=== PATIENT | male | born 1985 | race Caucasian/White ===

== ENCOUNTER 2017-07-12 08:37 | Emergency (ER) | payer BC ==
[2017-07-12 08:42] VITALS: BP 165/85; PULSE 72; RESP 16; TEMP 97.7; O2SAT 97
[2017-07-12] MEDS ORDERED: RABIES VACC, HUMAN DIPLOID/PF 2.5 UNIT VIAL (RABAVERT) IM ONE (09:05)
--- NOTE | 2017-07-12 09:11 | EDPHY ---
General Narrative: CHIEF COMPLAINT: Need rabies post exposure prophylaxis dose #2 HISTORY OF PRESENT ILLNESS: Patient reports with complaints of needing his 2nd Rabavert injection. He reports being in [place] recently. He was bit in his left hand last week, 1 week ago. This was by a macacque. He initially presented to emergency department in [facility]. They alexander his blood to test for masses seen her per virus, administered rabies vaccination and immunoglobulin. They also placed him herpes prophylaxis treatment. He presents here for day 3 injection of Rabavert. He has no headache. No chest pain or shortness of breath. No muscle spasms or trismus. No pain in the right hand and he feels that the wound on the hand is fully healed. He is now today on his tetanus, which was also administered and [place]. He lives here now thus he presents for the day 3 dosing. He has no other associated complaints or modifying factors. REVIEW OF SYSTEMS: Ten systems reviewed and are negative unless otherwise noted in the HPI PCP: None yet SPECIALISTS: None PAST MEDICAL HISTORY: None SOCIAL HISTORY: Nonsmoker. Works at [employer] FAMILY HISTORY: Noncontributory EXAMINATION General Appearance: Alert, no distress Head: normocephalic, atraumatic Eyes: Pupils equal and round, no conjunctival pallor or injection ENT, Mouth: Mucous membranes moist. Airway patent Neck: Normal inspection, supple, non-tender Respiratory: Lungs are clear to auscultation. No wheezing, rhonchi or crackles Cardiovascular: Regular rate and rhythm. No murmur Gastrointestinal: Abdomen is soft and nontender Back: non-tender, no bony abnormalities Neurological: GCS 15. A&O, nonfocal, normal gait strength is symmetric in the upper extremities Skin: Warm and dry, no rash petechiae or purpura. No abnormality of the dorsum of the right hand in the location of the bite Extremities: Nontender, no pedal edema Psychiatric: Mood and affect normal DIFFERENTIAL DIAGNOSES: Including but not limited to rabies post exposure prophylaxis, macacine herpes virus MDM: 9:08 a.m. Post exposure prophylaxis, day 3 treatment Rabavert. Patient has no complaints of any kind. He is adhering to his antiviral regimen as prescribed [place]. I have discussed the case with the on-call infectious disease physician Dr. Hernandez. He has taken the patient's information and will have the [facility] contact him for his day 7 treatment, which she is due for this Wednesday. The patient is comfortable with this plan. He has no complaints of any kind. He is well-appearing and nontoxic. Neuro exam is fully intact and there is no trismus. He is discharged in stable condition with the follow-up information for this and ED precautions. Additionally, he is recently relocated to [place] , thus we will provide the on-call primary care physician information for him to follow-up. SUPERVISION: Patient was independently examined, but I discussed the case with my secondary supervising physician Dr. Sheppard - History Smoking Status: Never smoked - Objective Vital Signs: Initial Vital Signs Temperature (C) 97.7 F 07/12/17 08:38 Heart Rate 72 07/12/17 08:38 Respiratory Rate 16 07/12/17 08:38 Blood Pressure 165/85 H 07/12/17 08:38 O2 Sat (%) 97 07/12/17 08:38 O2 Delivery Mode Room Air Allergies/Adverse Reactions: No Known Allergies Allergy (Unverified 07/12/17 08:42) Home Medications: Medication Instructions Recorded Rabies Vacc, Human Diploid/Pf 2.5 unit IM 07/12/17 [Imovax Rabies Vaccine (*)] valACYclovir [Valtrex (*)] 500 mg PO 07/12/17 Departure - Departure Disposition: Home, Routine, Self-Care Clinical Impression: Need for post exposure prophylaxis for rabies, History of receipt of rabies immune globulin Animal bite of hand Qualifiers: Encounter type: subsequent encounter Laterality: right Qualified Code(s): S61.451D - Open bite of right hand, subsequent encounter Condition: Good Instructions: Rabies Vaccine (By injection), Rabies Immune Globulin (By injection) Additional Instructions: 1. You should be contacted by the [facility] for appointment on Wednesday for evaluation and vaccination 2. ED precautions as discussed Referrals: JEREMY LINDSAY MD [Other] - As per Instructions [facility] (ED,. [Edm Groups for Call Sched] - As per Instructions Gil Dailey MD [Medical Doctor] - As per Instructions
== END 2017-07-12 09:30 | disposition home or self-care (01) ==
DX: Z23 Encounter for immunization (principal); Z20.3 Contact with and (suspected) exposure to rabies

== ENCOUNTER 2017-08-31 08:28 | Emergency (ER) | payer BC ==
[2017-08-31 08:35] VITALS: RESP 16; TEMP 98.1
--- NOTE | 2017-08-31 08:59 | EDPHY ---
H & P Stated Complaint: [place] pop in RLE last pm while climbing;had weakness in hand ( resolving) Time Seen by Provider: 08/31/17 08:58 HPI/ROS: HPI: This is a 32-year-old male who presents with Chief Complaint: [place] pop in RLE last pm while climbing;had weakness in hand ( resolving) Location: Right forearm Quality: Injury Duration: Last night Signs and Symptoms: No bleeding, no radiation, no numbness, no weakness, no tingling, no incontinence, no decreased range of motion, + swelling, no pain Timing: Acute Severity: Moderate Context: Patient is right-hand dominant, was climbing yesterday evening, as we was on a climbing peg using his right hand 2nd and 3rd fingers; he heard a pop in his right forearm; medial aspect. He was a continue to hold his weight. After his climb he noted some swelling in the forearm. He woke up this morning and had some mild stiffness and his 2nd 3rd fingers but full range of motion; good strength. He came to the emergency room for evaluation. Patient denies any pain. Modifying Factors: Comment: ROS: see HPI Constitutional: No fever, no chills, no weight loss Eyes: No blurred vision Respiratory: No shortness of breath, no cough Cardiovascular: No chest pain Gastrointestinal: No nausea, no vomiting no diarrhea Genitourinary: No dysuria Extremities: No myalgias Neurologic: No weakness, no numbness Skin: No rashes Hematologic: No bruising, no bleeding MEDICAL/SURGICAL/SOCIAL HISTORY: Medical history: Generally healthy. Does not take any regular medications. 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 CONSTITUTIONAL: awake and alert, no obvious distress HEENT: Atraumatic and normocephalic, PERRL, EOMI. Tympanic membranes clear. Oropharynx clear, no exudate and moist pink mucosa. Airway patent. No lymphadenopathy. No meningismus. Cardiovascular: Normal S1/S2, regular rate, regular rhythm, without murmur rub or gallop. PULMONARY/CHEST: Symmetrical and nontender. Clear to auscultation bilaterally. Good air movement. No accessory muscle usage. ABDOMEN: Soft, nondistended, nontender, no rebound, no guarding, no peritoneal signs, no masses or organomegaly. No CVAT. EXTREMITIES: 2/2 radial pulses, strength 5/5, right hand: DIP/PIP/MCP joints with full flexion and extension and excellent light touch sensation. Right WRIST: Extension to 70, flexion to 80, radial deviation to 20 degree, ulnar deviation to 30, no scaphoid tenderness, no tenderness over ulnar styloid, no tenderness over radial styloid, no pain with Saige test. Right forearm where the pronator quadratus over the flexor digitorum muscles are there is some mild swelling when compared to his left forearm; but no obvious deformity/ ecchymosis. Patient has full strength in his forearm muscle. Right ELBOW: Full extension to 180, flexion to 150, no tenderness over medial epicondyle, no tenderness over lateral epicondyle. no deformities, no clubbing, no cyanosis or edema. NEUROLOGICAL: no focal neuro deficits. GCS 15. SKIN: Warm and dry, no erythema. no rash. Good capillary refill. Source: Patient Exam Limitations: No limitations - Personal History Current Tetanus Diphtheria and Acellular Pertussis (TDAP): Yes - Medical/Surgical History Other PMH: healthy - Social History Smoking Status: Never smoked Constitutional: Initial Vital Signs Temperature (C) 36.7 C 08/31/17 08:30 Heart Rate 82 08/31/17 08:30 Respiratory Rate 16 08/31/17 08:30 Blood Pressure 160/100 H 08/31/17 08:30 O2 Sat (%) 98 08/31/17 08:30 O2 Delivery Mode Room Air Allergies/Adverse Reactions: No Known Allergies Allergy (Verified 08/31/17 08:32) Home Medications: Medication Instructions Recorded NK [No Known Home Meds] 08/31/17 Medical Decision Making ED Course/Re-evaluation: Long discussed with patient regarding CT scan of the forearm versus musculoskeletal ultrasound emergency room. Patient reports that she he has range of motion and no pain. He prefers to next immobilization for 5-7 days and if symptoms persist or worsen he will follow up with Orthopedics at which time imaging can be ordered at that time. I believe that this is a reasonable course of action. There is no deformity/decreased range of motion/pain out of proportion. No signs of neurovascular compromise/tenting of skin/compartment syndrome/ extremities and joints examined above and below area of concern and are neurovascularly intact. Patient was placed in a short arm volar splint; rice therapy This patient was seen under the supervision of my secondary supervising physician. I evaluated care for this patient independently. Differential Diagnosis: Differential diagnosis includes but is not limited to muscle tear, tendon rupture, muscle strain, contusion. Departure - Departure Disposition: Home, Routine, Self-Care Clinical Impression: Strain of other flexor muscle, fascia and tendon at forearm level, right arm, initial encounter Condition: Good Instructions: Muscle Strain (ED), Tendon Rupture (ED) Additional Instructions: Keep the dressing/splint dry and in place for 1 week. After 48 hours, you may remove the dressing; wash the site daily with mild soap and water; then pat dry. Take Tylenol 650 mg every 4 hours and/or Ibuprofen 600 mg every 8 hours with food as needed for pain. Apply ice for 30 minutes at a time; 2-3 times per day for the next 1-2 days. Follow up with Orthopedics in 7 days if symptoms persist or worsen at which time they will evaluate and recommend with you if conservative management versus adjuvant therapy is indicated. Referrals: Jose Rafael Gutierrez MD [Medical Doctor] - As per Instructions
[2017-08-31 09:50] VITALS: BP 125/104; PULSE 81; O2SAT 95
== END 2017-08-31 09:50 | disposition home or self-care (01) ==
DX: S56.811A Strain of other muscles, fascia and tendons at forearm level, right arm, initial encounter (principal); X58.XXXA Exposure to other specified factors, initial encounter; Y99.8 Other external cause status; Y93.39 Activity, other involving climbing, rappelling and jumping off

== ENCOUNTER → 2017-12-15 | Outpatient (CLI) | payer BC | LOC: FIMAGING 13:28 | PROVIDERS: ATTEND Psychiatry & Neurology Neurology | DX: J34.1 Cyst and mucocele of nose and nasal sinus (principal) ==